=== PATIENT | female | born 1950 | race Caucasian/White ===

== ENCOUNTER 2016-02-14 08:14 | Outpatient (CLI) | payer MEDICARE, OTHER ==
[2016-02-14 09:08] LABS: eGFR (African) > 60; eGFR (Non-African) > 60
== END 2016-02-14 08:15 ==
LOC: LAB 08:14
PROVIDERS: ATTEND Family Medicine
DX: I10 Essential (primary) hypertension (principal); R73.9 Hyperglycemia, unspecified; M06.9 Rheumatoid arthritis, unspecified
CPT/HCPCS: 36415; 80053; 80061; 83036

== ENCOUNTER 2016-05-28 14:12 | Outpatient (CLI) | payer MEDICARE, OTHER | END 2016-05-28 14:13 | LOC: POD 14:12 | PROVIDERS: ATTEND Podiatrist | DX: B35.1 Tinea unguium (principal); M79.674 Pain in right toe(s); M79.675 Pain in left toe(s) | CPT/HCPCS: G0463 ==

== ENCOUNTER 2016-07-30 07:29 | Emergency (ER) | payer MEDICARE, OTHER ==
[2016-07-30 08:29] VITALS: BP 137/69
--- NOTE | 2016-07-30 08:29 | ED Physician Documentation ---
Dizziness - HISTORIAN Historian: patient - HPI Chief Complaint: Dizziness Timing: sudden onset, still present Duration: noted on awakening Last known Well Date: 07/30/16 Last Known Well Time: 03:00 Last known Well Code/Unknown Code: Known Severity: moderate Associated Symptoms: vestibular, nausea, vomiting, sense of spinning. denies: hearing loss, ringing in ear, roaring in ear, ear pain, headache, weakness, sweating Decreased Ability to Stand/ Walk: off balance Usually: walks w/o assistance Worsened By: changing position, movement of head - ROS CONST: none. denies: fever, chills NEURO/PSYCH: none - PAST HX Past History: hypertension, other (hyperglycemia, RA) Surgeries/Procedures: none Allergies/Adverse Reactions: Allergies Allergy/AdvReac Type Severity Reaction Status Date / Time Penicillins Allergy Verified 07/30/16 08:01 zolpidem tartrate Allergy Verified 07/30/16 08:01 [From Ambien] - SOCIAL HX Smoking History: non-smoker Alcohol Use: none Drug Use: none - FAMILY HX Family History: none - REVIEWED ASSESSMENTS Nursing Assessment Reviewed: Yes Vitals Reviewed: Yes Dizziness Physical Exam - Physical Exam General Appearance: mild distress EENT: eye inspection normal, ENT inspection normal, pharynx normal, no signs of dehydration, other (TM normal). No: pharyngeal erythema, hearing deficit Neck: normal inspection, thyroid normal, supple Respiratory: no respiratory distress, breath sounds nml, chest non-tender, respiratory distress CVS: reg rate & rhythm, heart sounds normal, equal pulses, no murmur, no gallop Abdomen: soft, no organomegaly, normal bowel sounds Neuro: nml orientation, nml speech, nml cognition, mood/affect nml Cranial: nml as tested, no evidence of acute CVA Cerebellar: nml as tested Sensorimotor: motor nml, sensation nml Discharge Clincal Impression: Vertigo Referrals: Marcelo Anguiano MD [Primary Care Provider] - 2 Days Additional Instructions: Stay well hydrated. Move your head slowly. Do not drive while your are having problems. Take meclezine as directed, 25 mg ( one tablet) every 6 hours as needed for dizziness . Fill script for nausea medication if needed. Condition: Stable Disposition: 01 HOME, SELF-CARE Decision to Admit: NO Date of Decison to Admit: 07/30/16 Decision Time: 08:00
== END 2016-07-30 08:27 | disposition home or self-care (01) ==
LOC: ED 07:29
DX: R42 Dizziness and giddiness (principal)
CPT/HCPCS: 99283

== ENCOUNTER 2016-10-15 12:57 | Outpatient (CLI) | payer MEDICARE, OTHER | END 2016-10-15 13:00 | LOC: POD 12:57 | PROVIDERS: ATTEND Podiatrist | DX: B35.1 Tinea unguium (principal); M79.674 Pain in right toe(s); M79.675 Pain in left toe(s) | CPT/HCPCS: 11721; G0463 ==

== ENCOUNTER 2017-01-10 07:03 | Outpatient (CLI) | payer MEDICARE, OTHER ==
[2017-01-10 07:33] LABS: BASOPHILS % 1.3 (0.0-1.5); EOSINOPHILS % 4.2 % (0.0-6.8); MEAN CORPUSCULAR HEMOGLOBIN 31.8 pg (28.0-34.0); MEAN CORPUSCULAR VOLUME 94.8 fl (80.0-100.0); MONOCYTES % 5.8 % (0.0-11.0); NEUTROPHILS # 2.6 # k/uL (1.4-7.7)
[2017-01-10 08:27] LABS: eGFR (African) > 60; eGFR (Non-African) > 60
== END 2017-01-10 07:04 ==
LOC: LAB 07:03
PROVIDERS: ATTEND Family Medicine
DX: M06.9 Rheumatoid arthritis, unspecified (principal); R73.9 Hyperglycemia, unspecified; I10 Essential (primary) hypertension
CPT/HCPCS: 36415; 80053; 83036; 85025; 85651

== ENCOUNTER 2017-04-08 15:15 | Outpatient (CLI) | payer MEDICARE, OTHER | END 2017-04-08 15:16 | LOC: LABRHC 15:15 | PROVIDERS: ATTEND Physician Assistant | DX: R31.9 Hematuria, unspecified (principal) | CPT/HCPCS: 87086 ==

== ENCOUNTER 2018-04-06 08:19 | Outpatient (CLI) | payer MEDICARE, OTHER ==
[2018-04-06 09:02] LABS: eGFR (Non-African) > 60
[2018-04-06 10:12] LABS: BASOPHILS % 0.7 (0.0-1.5); EOSINOPHILS % 3.1 % (0.0-6.8); MEAN CORPUSCULAR HEMOGLOBIN 31.6 pg (28.0-34.0); MONOCYTES % 7.9 % (0.0-11.0); NEUTROPHILS # 2.2 # k/uL (1.4-7.7)
== END 2018-04-06 08:21 ==
LOC: LAB 08:19
PROVIDERS: ATTEND Family Medicine
DX: M06.9 Rheumatoid arthritis, unspecified (principal); I10 Essential (primary) hypertension; R73.9 Hyperglycemia, unspecified
CPT/HCPCS: 36415; 80053; 83036; 85025; 85651

== ENCOUNTER 2018-08-20 11:21 | Outpatient (CLI) | payer MEDICARE, OTHER ==
--- NOTE | 2018-08-25 14:52 | OP Clinic Progress Note ---
DATE OF VISIT: 08/20/2018 SUBJECTIVE: Rekha Mendez is a 67-year-old female presenting to clinic today for a painful right second toenail. She has been having pain along the proximal aspect of the nail where it is quite thick underneath the skin. She saw me in clinic recently and we discussed the possibility of removing the toenail temporarily or permanently. We also discussed the possibility of just a portion of the toenail being removed, but she is having pain across the whole proximal aspect and would like it removed permanently. The patient does not admit to any fevers, chills, nausea, vomiting, shortness of breath or chest pain. SHE DOES HAVE LISTED ALLERGIES TO PENICILLIN AND ZOLPIDEM TARTRATE. The patient denies being diabetic. OBJECTIVE: Vitals: Temperature 97.2 degrees Fahrenheit, heart rate 80, respiration rate 16, blood pressure 158/89. O2 saturation is 98% on room air. Vascular: 2+ DP and PT pulses, right foot. Capillary refill time is less than 3 seconds to the toes of the right foot. There is no edema noted on the right foot. Dermatologic: There is a very thick right second toenail extending underneath the eponychium. There is no erythema or drainage of any kind or ecchymosis noted. No other concerning skin lesions or hyperkeratoses, right foot. Musculoskeletal: There is pain to palpation noted along the entire base of the right second toenail at the eponychium. There is obvious prominence of the what is likely toenail underneath the eponychium that is sore. There were no other gross abnormalities noted, right foot. 5/5 muscle strength about the ankle and subtalar joint, right foot. Neurologic: Light touch sensation is intact to the toes, right foot. ASSESSMENT AND PLAN: 1. Onychocryptosis, right second toe. Consent was obtained for the below procedure. The risk and benefits were discussed that include, but are not limited to bleeding and infection. The patient agreed and signed the consent for a total nail avulsion of the right second toenail with chemical matrixectomy understanding and agreeing that she will not have the nail grow back with a success rate of 95%. PROCEDURE #1: Total nail avulsion of the right second toenail with chemical matrixectomy. An alcohol swab was utilized to cleanse the base of the right second toe. An injection consisting of 4 mL of a 1:1 mix of 2% lidocaine plain and 0.5% Marcaine plain were injected into the base of the right second toe. Anesthesia was obtained. At this time, the site was cleansed with Betadine prep. The toe was exsanguinated and a toe tourniquet applied. The right second toenail was then loosened from its edges and avulsed with the hemostat. This came out clean, and at this time, the nail matrix base was roughened with a small curette. At this time, phenol was applied in applications of 45 seconds, 45 seconds and 30 seconds totaling three applications. The patient then had the tourniquet released and a prompt hyperemic response was noted to the right second toe. The entire wound site and areas around it were flushed with 70% isopropyl alcohol. It should be noted that prior to application of the phenol antibiotic ointment was placed around the wound edge to protect it. There was also a protective sheet over her legs to protect them. Hemostasis was obtained with pressure. The entire site was rinsed with a copious amount of normal saline and dried and dressings were applied consisting of Silvadene, 4x4 gauze, 2-inch Dwayne and 1-inch Coban beginning on the toe and extending onto the distal forefoot to help hold it on the toe. The patient tolerated procedure well. She was given appropriate post procedure care instructions verbally and on paper. We will plan on seeing the patient for return clinic visit in one week and then likely two weeks after that. The patient had no further questions or concerns and is grateful for the procedure and we will see her in a week. Malathi HortonP.M. (Dictated/not signed) /Accutype [id number] /mab MTDD
== END 2018-08-20 11:50 ==
LOC: POD 11:21
PROVIDERS: ATTEND Podiatrist Foot & Ankle Surgery
DX: L60.0 Ingrowing nail (principal)
CPT/HCPCS: 11730; 99212; A4554

== ENCOUNTER 2018-08-27 13:52 | Outpatient (CLI) | payer MEDICARE, OTHER ==
--- NOTE | 2018-08-31 15:10 | OP Clinic Progress Note ---
DATE OF VISIT: 08/27/2018 SUBJECTIVE: Rekha Mendez is a 67-year-old female presenting to the clinic today for first post procedure follow-up for a right second toenail total nail avulsion with chemical matrixectomy. The patient states that she is amazed at how much better that toenail area feels and she is having no pain at this time. She does not admit to any fevers, chills, nausea, vomiting, shortness of breath or chest pain. She is doing appropriate care for the toe at this time. OBJECTIVE: Vitals: Temperature 97.2 degrees Fahrenheit, heart rate 81, respiration rate 20, blood pressure 158/74. O2 saturation is 98% on room air. Vascular: 2+ DP and PT pulses, right foot. Capillary refill time is less than 3 seconds to the toes of the right foot. There is no edema noted, right foot. Dermatologic: There is some pink raw tissue still noted on the dorsal aspect of the right second toenail bed area. There was also some mild white maceration on the edges of the procedure site. There is no erythema, ecchymosis or malodor or abnormal drainage of any kind or purulence noted. Musculoskeletal: There is no pain on palpation noted at all around the edge of the right second toenail bed area. There is no fluctuance or any concerning feel with palpation of the right second toenail bed area. There were no other gross abnormalities noted. Neurologic: Light touch sensation is intact to the toes, right foot. ASSESSMENT AND PLAN: 1. Postprocedure care. 2. Onychocryptosis, right second toe follow-up. A Band-Aid was applied to the patients right second toe today. She is encouraged to every other day apply antibiotic ointment and a Band-Aid to this area and on the opposite days to apply just a Band-Aid for the next week. After that, she will do just a Band-Aid for that second week and increase time to air exposure during that second week. She will return to the clinic in 2 weeks for follow-up and she has no further questions or concerns and is very happy with how good she feels at this time. She knows she needs to report to myself or to an emergency room or urgent care if there are any signs of infection that begin as well. She does not have any other issues, and she is very happy with things, and we will see her in 2 weeks. Darryn Gordon D.P.M. (Dictated/Not Signed) Trini Job#: [id number] MTDD
== END 2018-08-27 14:22 ==
LOC: POD 13:52
PROVIDERS: ATTEND Podiatrist Foot & Ankle Surgery
DX: Z48.817 Encounter for surgical aftercare following surgery on the skin and subcutaneous tissue (principal); L60.0 Ingrowing nail
CPT/HCPCS: 99213; G0463

== ENCOUNTER 2018-09-10 10:13 | Outpatient (CLI) | payer MEDICARE, OTHER ==
--- NOTE | 2018-09-15 10:06 | OP Clinic Progress Note ---
DATE OF VISIT: 09/10/2018 SUBJECTIVE: Rekha Mendez is here for follow up of a right second toenail total avulsion with chemical matrixectomy performed I believe on August 20, 2018. This is her second followup. She states that it is feeling great except for just a tiny bit of pain at the proximal central part of where the procedure was performed where there is still some raw tissue. She is allowing it sometimes to go without a Band-Aid overnight and she was encouraged to probably not do that at this point as it is still an open wound. The patient does not admit to any fevers, chills, nausea, vomiting, shortness of breath or chest pain. She denies any other issues or complaints. OBJECTIVE: Vitals: Temperature 97.7 degrees Fahrenheit, heart rate 90, respiration rate 18, blood pressure 152/69. O2 saturation is 96% on room air. Vascular: 2+ DP and PT pulses, right foot. Capillary refill time is less than 3 seconds to the toes of the right foot. There is no edema noted, right foot. Dermatologic: There is a very small raw tissue area noted on the dorsal proximal central aspect of the toenail bed area. The rest of it has dried up beautifully with a very stable brown eschar. There is no maceration noted. There is no erythema or purulence or malodor of any kind noted. Musculoskeletal: There is mild pain on palpation noted at the proximal central dorsal aspect of the procedure site, right second toenail. There otherwise is no concerning area or fluctuance of any kind. There are no other gross abnormalities noted. Neurologic: Light touch sensation is intact to the toes, right foot. ASSESSMENT AND PLAN: 1. Postprocedure care (status post right second toenail total avulsion with chemical matrixectomy on August 20, 2018). 2. Onychocryptosis. The patient has a very small open area central proximally on the right dorsal second toe. The patient was encouraged to continue every other day antibiotic ointment and a Band-Aid versus the other days doing just the Band-Aid. She is to increase air time for the toe in order to allow it to dry up. The patient is encouraged to not leave it open all night in her bed, however, as it not a clean area to do so. The patient is to report to us if any issues or any signs of infection begin. Otherwise it is looking great and should be healed in the next two weeks. The patient is to return to clinic in two weeks for follow up to be able to make sure that it has healed beautifully. Malathi HortonPJuan PabloM.(Dictated/not signed) /Accutype [id number] /mab MTDD
== END 2018-09-10 10:50 ==
LOC: POD 10:13
PROVIDERS: ATTEND Podiatrist Foot & Ankle Surgery
DX: Z48.89 Encounter for other specified surgical aftercare (principal); L60.0 Ingrowing nail
CPT/HCPCS: 99213